=== PATIENT | female | born 1965 | race Caucasian/White ===

== ENCOUNTER 2017-01-18 23:40 | Emergency (ER) | payer MEDICAID ==
[~2017-01-18] VITALS: Ht 175.3 cm; Wt 113.4 kg
[~2017-01-18 23:40] MED LIST: ALBU0.0939 IH; ATEN100T6 PO; AZIT250T3 PO; LACT1.4C PO; LISI2.5T12 PO; METF500T PO; METH4TAB3 PO; NICO21TD TD; SIMV20TA1 PO; [UNRECOGNIZED DRUG - CODE] PO
[2017-01-18 23:46] VITALS: BP 150/100
--- NOTE | 2017-01-19 00:07 | NUR ---
PATIENT AMBULATED TO BED 8.
--- NOTE | 2017-01-19 00:13 | NUR ---
DR. HERNANDEZ AT BEDSIDE.
--- NOTE | 2017-01-19 00:16 | NUR ---
PATIENT PRESENTS TO ED WITH ASTHMA ATTACK , SOB, COUGH SINCE YESTERDAY . PT STATES IM GOING TO WORK TOMORROW, DENIES N/V/D; SKIN IS PINK/WARM/DRY; AAOX4 WITH EVEN AND STEADY GAIT;HR EVEN AND REGULAR; PT DENIES ANY FEVER, CP, PATIENT STATES PAIN OF 0/10 AT THIS TIME; PATIENT POSITIONED FOR COMFORT; HOB ELEVATED; BEDRAILS UP X2; PT PLAYING WITH HER PHONE AT THIS TIME,
[2017-01-19] MEDS ORDERED: methylPREDNISolone SS 125 MG in WATER STERILE 2 ML IM ONE (00:25)
[2017-01-19] MEDS ORDERED: ALBUTEROL SULFATE/IPRATROPIU 3 ML SOL IH ONE (00:25)
--- NOTE | 2017-01-19 00:37 | NUR ---
RT AT BEDSIDE
[2017-01-19 01:11] VITALS: BP 150/100
--- NOTE | 2017-01-19 01:12 | NUR ---
PT REFUSED BP TO BE RECHECKED CLAIMED I WANT TO GO HOME NOW, I FEEL BETTER.
--- NOTE | 2017-01-19 01:13 | NUR ---
Patient discharged with v/s stable. Written and verbal after care instructions given and explained. Patient alert, oriented and verbalized understanding of instructions. Ambulatory with steady gait. All questions addressed prior to discharge. ID band removed. Patient advised to follow up with PMD. Rx of ATROVENT AND PREDNISONE given. Patient educated on indication of medication including possible reaction and side effects. Opportunity to ask questions provided and answered.
== END 2017-01-19 01:13 | disposition home or self-care (01) ==
LOC: MED 23:40
DX: J44.1 Chronic obstructive pulmonary disease with (acute) exacerbation (principal); J45.909 Unspecified asthma, uncomplicated; I10 Essential (primary) hypertension; Z91.013 Allergy to seafood; Z88.8 Allergy status to other drugs, medicaments and biological substances; E11.9 Type 2 diabetes mellitus without complications
CPT/HCPCS: 94640; 96372; 99283; J2930; J7620

== ENCOUNTER 2017-06-23 18:13 | Emergency (ER) | payer MEDICAID ==
[~2017-06-23] VITALS: Ht 175.3 cm; Wt 113.4 kg
[2017-06-23 18:26] VITALS: BP 142/93
--- NOTE | 2017-06-23 19:20 | NUR ---
52/F [facility] FOR SOB, PT REPORTS SOB AND PRODUCTIVE COUGH WITH YELLOW/GREEN SPUTUM X 1 WEEK, CONSTANT, PROGRESSIVELY WORSENING. PT REPORTS SHE HAS BEEN USING INHALER AT HOME WITHOUT RELIEF. EMS GAVE 6 ROUNDS OF TREATMENT WITHOUT RELIEF, PT SATS 99% ON 2LPMNC, LUNG SOUNDS COARSE TO KALIN BASES. DENIES FEVER/CHILLS, N/V/D, CP. PMH: CHF, HTN, DM, COPD
[2017-06-23] MEDS ORDERED: ALBUTEROL SULFATE/IPRATROPIU 3 ML SOL IH ONE (19:30)
[2017-06-23 19:47] LABS: BASOPHILS # (AUTO) 0.2 K/uL (0.00-0.22); BASOPHILS % (AUTO) 2.1 % (0.0-2.0); EOSINOPHILS # (AUTO) 0.1 K/uL (0-0.4); EOSINOPHILS % (AUTO) 0.8 % (0.0-4.0); HEMATOCRIT 43.7 % (36-48); HEMOGLOBIN 14.4 g/dL (12.0-16.0); LYMPHOCYTES # (AUTO) 0.8 K/uL (2.5-16.5); LYMPHOCYTES % (AUTO) 7.5 % (20.5-51.1); MEAN CORPUSCULAR HEMOGLOBIN 27 pg (27-31); MEAN CORPUSCULAR HGB CONC 33 g/dL (33-37); MEAN CORPUSCULAR VOLUME 81 fL (80-94); MONOCYTES # (AUTO) 0.3 K/uL (0.8-1.0); MONOCYTES % (AUTO) 2.9 % (1.7-9.3); NEUTROPHILS # (AUTO) 9.1 K/uL (1.8-7.7); NEUTROPHILS % (AUTO) 86.7 % (42.2-75.2); PLATELET COUNT (AUTO) 283 K/uL (140-450); RED BLOOD CELL COUNT(AUTO) 5.41 MIL/uL (4.20-5.40); RED CELL DISTRIBUTION WIDTH 16.3 % (11.6-13.7); WHITE BLOOD COUNT (AUTO) 10.5 K/uL (4.8-10.8)
[2017-06-23] MEDS ORDERED: ACETAMINOPHEN EXTRA STRENGTH 500 MG TAB ONE (19:53)
[2017-06-23 19:59] LABS: ANION GAP 8.8 (8-16); CARBON DIOXIDE 29.6 mmol/L (21-32); CREATININE 0.8 mg/dL (0.6-1.3); POTASSIUM 3.4 mmol/L (3.5-5.1)
[2017-06-23 20:02] LABS: PROTHROMBIN TIME 9.9 secs (10.8-13.4)
[2017-06-23 20:08] LABS: ALBUMIN 3.1 g/dL (3.4-5.0); TOTAL BILIRUBIN 0.1 mg/dL (0.0-1.0)
--- NOTE | 2017-06-23 20:20 | NUR ---
ABG ATTEMPTED TWICE AND WAS UN-SUCCESSFUL. DR. ASKEW WAS NOTED OF THIS AND STATED IT WAS OK AND NO NEED TO KEEP STICKING THE PATIENT
[2017-06-23 21:17] VITALS: BP 136/84
--- NOTE | 2017-06-23 21:22 | NUR ---
IV INSERTION ATTEMTPED, PT GOT UPSET AND STARTED YELLING " IT HURTS, YOU STUPID BITCH, I AM LEAVING, I DONT CARE, I AM LEAVING" ER MD BARRETT MADE AWARE. Patient does not wish to proceed with medical care recommended by DR BARRETT. Patient given information related to possible complications, up to and including , which could occur as a result of leaving hospital at this time. Patient verbalizes understanding of risks involved leaving against medical advice. Patient has signed AMA form.
[2017-06-23] MEDS ORDERED: methylPREDNISolone SS 125 MG/2 ML VIAL IVP ONE (21:30)
--- NOTE | 2017-06-23 21:35 | NUR ---
PT YELLED AT [facility] AND ER MD DR BARRETT STS " FUCK YOUR AMA PAPER WORK. I WILL NOT FUCKING SIGN ANYTHING. IM GOING HOME NOW." PT AAOX4 AT TIS TIME. GAIT-WNL.
[2017-06-24] MEDS ORDERED: methylPREDNISolone SS 125 MG/2 ML VIAL IVP SCH (05:00)
[2017-06-25] MEDS ORDERED: methylPREDNISolone SS 40 MG/ML VIAL IVP SCH (05:00)
== END 2017-06-23 21:22 | disposition left against medical advice (07) ==
LOC: MED 18:13
DX: J44.1 Chronic obstructive pulmonary disease with (acute) exacerbation (principal); Q24.9 Congenital malformation of heart, unspecified; E11.9 Type 2 diabetes mellitus without complications; I10 Essential (primary) hypertension; Z90.89 Acquired absence of other organs; Z88.8 Allergy status to other drugs, medicaments and biological substances
CPT/HCPCS: 36415; 71010; 80053; 85025; 85610; 94640; 99285; J7620; Q0092